=== PATIENT | male | born 1985 | race Caucasian/White ===

== ENCOUNTER 2021-07-16 05:51 | Emergency (ER) | payer MEDICAID, SELFPAY ==
[2021-07-16 05:54] VITALS: BP 167/80; PULSE 95; RESP 16; TEMP 36.6; O2SAT 98; BMI 22.8
--- NOTE | 2021-07-16 06:02 | XR_ITS ---
PROCEDURE INFORMATION: Exam: XR Left Elbow Exam date and time: 07/16/2021 6:02 AM Age: 36 years old Clinical indication: Elbow; Left; Patient HX: Pain for months TECHNIQUE: Imaging protocol: XR Left elbow. Views: 3 or more views. AP, lateral and oblique views COMPARISON: CR XR HAND LT MIN 3V 08/23/2019 12:39 PM FINDINGS: Bones/joints: Normal. Soft tissues: Normal. IMPRESSION: Unremarkable exam.
--- NOTE | 2021-07-16 06:29 | HMH.EDDENT ---
ED Disposition Clinical Impression: Dental caries, Elbow pain, left Disposition: Home, Self-Care Condition on Discharge: Good Instructions: DI for Dental Pain Additional Instructions: see dentist for follow up Prescriptions: clindamycin HCL [Clindamycin HCl] 300 mg PO TID #30 cap Transmission Status: Pending to [id number] Meloxicam [Mobic 15 mg tab] 15 mg PO DAILY #10 tab Transmission Status: Pending to [facility]/pharmacy #[id number] Referrals: Provider,Referral, [Primary Care Provider] - - Critical Care Critical Care Time: No Attestation: On 07/16/21, the high probability of a clinically significant, sudden or life threatening deterioration of the following system(s) required my full and direct attention, intervention and personal management. The time I documented below is in addition to time spent performing reported procedures but includes the following listed in this critical care notation. Medical Decision Making - Medical Records Medical records reviewed: Yes: I reviewed the patient's medical records. - Yong Inquiry Pt receiving controlled substance: No Vital Signs: 07/16/21 05:54 Temperature 97.8 F Temperature Source Oral Pulse Rate [Right] 95 H Respiratory Rate 16 Blood Pressure [Right Arm] 167/80 H Blood Pressure Mean [Right Arm] 109 02 Sat by Pulse Oximetry 98 - Lab Data Lab results reviewed: Yes: I reviewed the patient's lab results. Orders (Tests/Meds): ORDERS Category Date Time Status XR elbow LT min 3V Stat Exams 07/16/21 06:02 Taken - Radiology Data #1 Image(s): Elbow Image Reviewed: Yes I reviewed the patient's radiology image Preliminary Findings: Normal/NAD Medical Decision Narrative: will refer to ortho and dentist Dental HPI - General Chief complaint: Dental/Oral Stated complaint: toothache, elbow pain Time Seen by Provider: 07/16/21 06:29 Mode of Arrival: Ambulatory Source of Information: Patient, Medical Record Limitations: No Limitations Description of Symptoms (Recalled from ER Triage Doc. by RN): pt c/o lt lower tooth pain x 2 days also lt elbow that is painful x 1 week from an old injury - History of Present Illness HPI Narrative: has swollen lt lower jaw and has ongoing lt upper ext pain Complaint: tooth pain Onset (ago): day(s) Duration: intermittent Severity: moderate Context: poor dental care Treatment prior to arrival: none - Related Data Previous Rx's Medication Instructions Recorded Meloxicam [Mobic 15 mg tab] 15 mg PO DAILY #10 tab 07/16/21 clindamycin HCL [Clindamycin HCl] 300 mg PO TID #30 cap 07/16/21 Allergies Allergy/AdvReac Type Severity Reaction Status Date / Time No Known Allergies Allergy Verified 08/23/19 12:27 [facility] History - Hepatitis A Screen Drug use history?: No High risk sexual behaviors?: No History of sexually transmitted infection?: No Currently employed?: No Childcare worker?: No Do you have indoor plumbing?: Yes Do you have electricity?: Yes Attestation statement:: This patient has been screened for Hepatitis A risk factors. I have reviewed the patient's past medical history: Yes - Social History Smoking Status: Current every day smoker Tobacco Type: cigarettes # Packs/Day (cigarettes): 1 Alcohol Intake: never Alcohol Intake Frequency:: holidays/special occasions only Occupational Status: employed ROS Obtained: Yes All systems reviewed & no additional complaints - Constitutional Constitutional: Denies fever(s) - Eyes Eyes: Denies change in vision - ENT Ears, Nose, Mouth, and Throat: Reports as per HPI, Reports dental pain, Denies sore throat - Cardiovascular Cardiovascular: Denies chest pain - Respiratory Respiratory: Denies shortness of breath - Gastrointestinal Gastrointestingal: Denies: abdominal pain - Genitourinary Male Genitourinary: Denies hematuria - Musculoskeletal Musculoskeletal: Reports as per HPI, Reports joint pain, [place]
[2021-07-16 06:44] VITALS: BP 144/85; PULSE 72; RESP 14; TEMP 36.8; O2SAT 98
== END 2021-07-16 06:55 | disposition home or self-care (01) ==
PROVIDERS: Emergency Provider Emergency Medicine
DX: K02.9 Dental caries, unspecified (principal); M79.622 Pain in left upper arm; F17.210 Nicotine dependence, cigarettes, uncomplicated
CPT/HCPCS: 73080; 99282